=== PATIENT | male | born 1955 | race Caucasian/White ===

== ENCOUNTER 2019-12-16 10:22 | Day surgery (SDC) | payer BC ==
--- NOTE | 2019-12-12 15:23 | PCM.SN.2 ---
- Free Text/Narrative Note: Anesthesia Note: Left selective femoral nerve block at the adductor canal for post-procedure pain control under US guidance requested by Dr. Ruffin. Time Out: Start: End: Chart reviewed. Consent signed. Questions answered. Appropriate monitors applied. Time out performed. Left mid-shaft femur identified with ultrasound, scanning medially of femur, the femoral artery in the adductor canal visualized, and the femoral nerve located laterally to the artery. The skin was prepped lateral to the ultrasound probe with chlorahexadine times two. The 21ga 4 insulated block needle was inserted under direct ultrasound guidance into the adductor canal. 25mL of 0.5% ropivacaine with 1:200,000 epinephrine was injected circumferentially around the nerve with intermittent negative aspiration noted. Patient tolerated the procedure well. Sterile technique noted along with sterile gloves, mask, and sterile probe cover. See picture on progress note and vital signs on nurses notes. Block completed in PACU. Jennifer Groves CRNA
[~2019-12-16 10:22] MED LIST: Acetaminophen 325 MG Tab PO SCH; Bisacodyl 5 MG Tab PO PRN; Lactated Ringers 1,000 ML IV SCH; Lidocaine 1%/Sod Bicarbonate in NS 8.4% 1 ML Syringe IDERM PRN; Magnesium Hydroxide 400 MG/5 ML Susp 30 ML Cup PO PRN; Morphine 2 MG/ML SYRINGE IVPUSH PRN; Naloxone 0.4 MG/ML SDV IVPUSH PRN; Ondansetron 4 MG/2 ML SDV IVPUSH PRN; Pregabalin 25 MG Cap PO SCH; Sennosides 8.6 MG Tab PO PRN; Sodium Chloride 0.9% 10 ML Syringe FLUSH PRN; oxyCODONE ER 10 MG TAB.ER PO SCH
[2019-12-16] MEDS ORDERED: Midazolam 1 MG/ML 2 ML SDV ONE (10:31)
[2019-12-16] MEDS ORDERED: Ondansetron 4 MG/2 ML SDV ONE (10:31)
[2019-12-16] MEDS ORDERED: Lactated Ringers 1,000 ML ONE (10:31)
[2019-12-16] MEDS ORDERED: Propofol 200 MG/20 ML SDV ONE ×2 (10:31→13:50)
[2019-12-16] MEDS ORDERED: fentaNYL 100 MCG/2 ML SDV ONE (10:31)
--- NOTE | 2019-12-16 10:47 | PCM.PREANE ---
Preanesthetic Assessment - Anesthesia/Transfusion/Family Hx Anesthesia History: Prior Anesthesia Without Reaction Family History of Anesthesia Reaction: No Transfusion History: No Prior Transfusion(s) - Review of Systems General: Other (ETOH, 2-3 beers per day) Pulmonary: Other (previous smoker) Cardiovascular: Other (HTN) Gastrointestinal: Other (occassional heartburn, takes over the counter as needed) Neurological: No Symptoms Other: Reports: None - Physical Assessment NPO Status Date: 12/15/19 NPO Status Time: 21:30 Weight: 80 kg ASA Class: 2 Mental Status: Alert & Oriented x3 Airway Class: Mallampati = 2 Dentition: Reports: Normal Dentition Thyro-Mental Finger Breadths: 3 Mouth Opening Finger Breadths: 3 ROM/Head Extension: Full Lungs: Clear to Auscultation, Normal Respiratory Effort Cardiovascular: Regular Rate, Regular Rhythm - Lab Values: Laboratory Last Values COVID-19 PCR Not detected (NOT DETECT) 12/12/19 09:30 MRSA (PCR) Positive H 12/04/19 13:11 - Allergies Allergies/Adverse Reactions: Allergies Allergy/AdvReac Type Severity Reaction Status Date / Time pravastatin AdvReac Muscle Verified 12/13/19 14:39 Weakness - Blood Blood Available: No Product(s) Available: None - Anesthesia Plan Pre-Op Medication Ordered: None - Acknowledgements Anesthesia Type Planned: Spinal, MAC Pt an Appropriate Candidate for the Planned Anesthesia: Yes Alternatives and Risks of Anesthesia Discussed w Pt/Guardian: Yes Pt/Guardian Understands and Agrees with Anesthesia Plan: Yes PreAnesthesia Questionnaire HEENT History: Reports: None Cardiovascular History: Reports: High Cholesterol, Hypertension Respiratory History: Reports: None Gastrointestinal History: Reports: Other (See Below) Other Gastrointestinal History: anal fissure Genitourinary History: Reports: Other (See Below) Other Genitourinary History: erectile dysfunction, ureter calculus HEEL DIPPER History: Reports: None Musculoskeletal History: Reports: Osteoarthritis Neurological History: Reports: None Psychiatric History: Reports: None Endocrine/Metabolic History: Reports: None Hematologic History: Reports: None Immunologic History: Reports: None Oncologic (Cancer) History: Reports: None Dermatologic History: Reports: None - Past Surgical History Head Surgeries/Procedures: Reports: None HEENT Surgical History: Reports: Tonsillectomy Cardiovascular Surgical History: Reports: None Respiratory Surgical History: Reports: None GI Surgical History: Reports: Colonoscopy Other Female Surgeries/Procedures: cystoscopy, ureteroscopy Male Surgical History: Reports: Other (See Below) Endocrine Surgical History: Reports: None Neurological Surgical History: Reports: None Musculoskeletal Surgical History: Reports: Arthroscopic Knee Oncologic Surgical History: Reports: None Dermatological Surgical History: Reports: None - SUBSTANCE USE Smoking Status *Q: Never Smoker Days Per Week of Alcohol Use: 2 Number of Drinks Per Day: 2 Total Drinks Per Week: 4 Recreational Drug Use History: No - HOME MEDS Home Medications: Home Meds Cholecalciferol (Vitamin D3) [Vitamin D3] 5,000 unit PO DAILY 12/13/19 [History] Fish Oil/[place]-3 Fatty Acids [Fish Oil 1,000 MG] 1 gm PO DAILY 12/13/19 [History] Flaxseed Oil 1,000 mg PO DAILY 12/13/19 [History] Lisinopril/Hydrochlorothiazide [Lisinopril-Hctz 20-12.5 mg Tab] 1 tab PO DAILY 12/13/19 [History] Multivitamin [Daily Keyla] 1 tab PO DAILY 12/13/19 [History] Sildenafil [Viagra] 100 mg PO ASDIRECTED PRN 12/13/19 [History] Turmeric 400 mg PO DAILY 12/13/19 [History] Ubidecarenone [Coq-10] 100 mg PO DAILY 12/13/19 [History] - CURRENT (IN HOUSE) MEDS Current Meds: Current Medications Acetaminophen (Tylenol) 975 mg PO ONETIME [facility] Stop: 12/16/19 18:00 Last Admin: 12/16/19 10:37 Dose: 975 mg Documented by: Aspirin (Ecotrin) 325 mg PO BID [facility] Bisacodyl (Dulcolax) 5 mg PO DAILY PRN PRN Reason: Constipation Morphine Sulfate 8 mg/Epinephrine HCl 0.3 mg/Cefuroxime Sodium 750 mg/Ketorolac Tromethamine 30 mg/Sodium Chloride 7.9 ml 0 mg .XX ONETIME [facility] Stop: 12/16/19 13:00 Cyclobenzaprine HCl (Flexeril) 10 mg PO TID PRN PRN Reason: Spasms Docusate Sodium (Colace) 100 mg PO BID [facility] Famotidine (Pepcid) 20 mg PO Q12H [facility] Lactated Ringer's (Ringers, Lactated) 1,000 mls @ 125 mls/hr IV ASDIRECTED [facility] Stop: 12/16/19 23:00 Cefazolin Sodium/Dextrose 2 gm (/ Premix) 50 mls @ 100 mls/hr IV Q8H [facility] Stop: 12/16/19 22:59 Lidocaine/Sodium Bicarbonate (Buffered Lidocaine 1% In Ns 8.4%) 0.25 ml IDERM ONETIME PRN PRN Reason: Prior to IV Start Stop: 12/16/19 18:00 Magnesium Hydroxide (Milk Of Magnesia) 30 ml PO BID PRN PRN Reason: Constipation Morphine Sulfate (Morphine) 2 mg IVPUSH Q2H PRN PRN Reason: Breakthrough Pain Naloxone HCl (Narcan) 0.1 mg IVPUSH Q5M PRN PRN Reason: Oversedation Ondansetron HCl (Zofran) 4 mg IVPUSH Q6H PRN PRN Reason: Nausea/Vomiting Oxycodone HCl (Oxycontin) 10 mg PO ONETIME [facility] Stop: 12/16/19 18:00 Last Admin: 12/16/19 10:37 Dose: 10 mg Documented by: Oxycodone/Acetaminophen (Percocet 325-5 Mg) 1 - 2 tab PO Q4H PRN PRN Reason: Pain Pregabalin (Lyrica) 50 mg PO ONETIME [facility] Stop: 12/16/19 18:00 Last Admin: 12/16/19 10:37 Dose: 50 mg Documented by: Senna (Senna) 8.6 mg PO BID PRN PRN Reason: Constipation Sodium Chloride (Saline Flush) 10 ml FLUSH ASDIRECTED PRN PRN Reason: Keep Vein Open Stop: 12/16/19 18:00 Vancomycin HCl (Pharmacy To Dose - Vancomycin) 1 dose .XX ONETIME ONE Stop: 12/16/19 07:13 Discontinued Medications Cefazolin Sodium (Ancef) Confirm Administered Dose 2 gm .ROUTE .STK-MED ONE Stop: 12/16/19 10:32 Fentanyl (Sublimaze) Confirm Administered Dose 100 mcg .ROUTE .STK-MED ONE Stop: 12/16/19 10:32 Lactated Ringer's (Ringers, Lactated) Confirm Administered Dose 1,000 mls @ as directed .ROUTE .STK-MED ONE Stop: 12/16/19 10:32 Midazolam HCl (Versed 1 Mg/Ml) Confirm Administered Dose 2 mg .ROUTE .STK-MED ONE Stop: 12/16/19 10:32 Ondansetron HCl (Zofran) Confirm Administered Dose 4 mg .ROUTE .STK-MED ONE Stop: 12/16/19 10:32 Propofol (Diprivan 20 Ml) Confirm Administered Dose 600 mg .ROUTE .STK-MED ONE Stop: 12/16/19 10:32
[2019-12-16] MEDS ORDERED: Vancomycin 1 GM SDV ONE ×2 (11:37→14:00)
[2019-12-16] MEDS ORDERED: ceFAZolin 1 GM Vial ONE (11:38)
[2019-12-16] MEDS ORDERED: Bupivacaine 0.25% 10 ML SDV ONE (11:38)
[2019-12-16] MEDS ORDERED: Triamcinolone Acetonide 40 MG/ML 1 ML MDV ONE (11:51)
[2019-12-16] MEDS: ceFAZolin 1 GM Vial ONE ×3 (13:01→14:01)
[2019-12-16] MEDS ORDERED: ePHEDrine Sulfate/0.9% NaCl/Pf 25 MG/5 ML SYRINGE IV ONE (13:02)
[2019-12-16] MEDS: Morphine 8 MG, EPINEPHrine 0.3 MG, Cefuroxime 750 MG, Ketorolac 30 MG, Sodium Chloride ... SCH ×10 (13:34→13:56)
[2019-12-16] MEDS: Bupivacaine 0.25% 10 ML SDV ONE ×3 (13:34→14:38)
[2019-12-16] MEDS: Iodine/Sodium Iodide 2% Tincture 30 ML Bottle ONE ×2 (13:34→13:52)
[2019-12-16] MEDS: Vancomycin 1 GM SDV ONE ×2 (13:35→13:59)
[2019-12-16] MEDS ORDERED: Ondansetron 4 MG/2 ML SDV IVPUSH PRN (13:41)
[2019-12-16] MEDS ORDERED: fentaNYL 100 MCG/2 ML SDV IVPUSH PRN (13:41)
--- NOTE | 2019-12-16 14:41 | PCM.POSTAN ---
POST ANESTHESIA ASSESSMENT - MENTAL STATUS Mental Status: Alert, Oriented - VITAL SIGNS Vital Signs: Last Vital Signs Temp 36.6 C 12/16/19 10:20 Pulse 67 12/16/19 10:20 Resp 16 12/16/19 10:20 BP 145/92 H 12/16/19 10:20 Pulse Ox 97 12/16/19 10:20 - RESPIRATORY Respiratory Status: Respiratory Rate WNL, Airway Patent, O2 Saturation Stable, Supplemental Oxygen - CARDIOVASCULAR CV Status: Pulse Rate WNL, Blood Pressure Stable - GASTROINTESTINAL GI Status: No Symptoms - PAIN Pain Score: 0 - POST OP HYDRATION Hydration Status: Adequate & Stable
[2019-12-16] MEDS ORDERED: Ropivacaine 0.5% 5 MG/ML 30 ML SDV ONE (14:46)
[2019-12-16] MEDS ORDERED: EPINEPHrine 1 MG/ML SDV ONE (14:46)
[2019-12-16] MEDS ORDERED: Cyclobenzaprine 10 MG Tab PO PRN (15:00)
--- NOTE | 2019-12-16 15:08 | PCM.SN.2 ---
- Free Text/Narrative Note: Left selective femoral nerve block at the adductor canal for post-procedure pain control under US guidance requested by Dr. Ruffin. Date: 12/16/2019 Time Out: 1454 Start: 1454 End: 1501 Chart reviewed. Consent signed. Questions answered. Appropriate monitors applied. Time out performed. Left mid-shaft femur identified with ultrasound, scanning medially of femur, the femoral artery in the adductor canal visualized, and the femoral nerve located laterally to the artery. The skin was prepped lateral to the ultrasound probe with chlorahexadine times two. The 21ga 4 insulated block needle was inserted under direct ultrasound guidance into the adductor canal. 25mL of 0.5% ropivacaine with 1:200,000 epinephrine was injected circumferentially around the nerve with intermittent negative aspiration noted. Patient tolerated the procedure well. Sterile technique noted along with sterile gloves, mask, and sterile probe cover. See picture on progress note and vital signs on nurses notes. Block completed in PACU. Ghulam Laws CRNA
--- NOTE | 2019-12-16 15:21 | CR ---
Left knee: AP and crosstable lateral views of the left knee were obtained. Comparison: No prior left knee study. Knee prosthesis is seen. Components are aligned. Soft tissue air is noted from the surgical procedure. No fracture or other abnormality is appreciated. Impression: 1. Satisfactory postop radiographic appearance of recently placed left knee prosthesis. Diagnostic code #2 This report was dictated in MDT
[2019-12-16] MEDS: ceFAZolin 2 GM in Premix Bag 1 BAG IV SCH (18:52)
[2019-12-16] MEDS: Famotidine 20 MG Tab PO SCH (20:40)
[2019-12-16] MEDS: Acetaminophen/oxyCODONE 325-5 MG Tab PO PRN (20:41)
[2019-12-16] MEDS: Docusate Sodium 100 MG Cap PO SCH (20:41)
[2019-12-17] MEDS: Acetaminophen/oxyCODONE 325-5 MG Tab PO PRN ×3 (00:29→08:35)
[2019-12-17] MEDS: ceFAZolin 2 GM in Premix Bag 1 BAG IV SCH ×2 (04:05→10:22)
--- NOTE | 2019-12-17 08:26 | PCM.SURGPN ---
- General Info Date of Service: 12/17/19 POD#: 1 Functional Status: Reports: Pain Controlled, Tolerating Diet, Ambulating, Urinating, Incentive Spirometry, Other (The pt states he is doing very well. ) - Patient Data Vitals - Most Recent: Last Vital Signs Temp 98.4 F 12/17/19 07:45 Pulse 79 12/17/19 07:45 Resp 18 12/17/19 07:45 BP 141/89 H 12/17/19 07:45 Pulse Ox 95 12/17/19 07:45 Weight - Most Recent: 176 lb 5.917 oz I&O - Last 24 Hours: Intake & Output 12/16/19 12/17/19 12/17/19 22:59 06:59 14:59 Intake Total 700 1000 Balance 700 1000 Lab Results Last 24 Hrs: Laboratory Results - last 24 hr 12/17/19 12/17/19 Range/Units 06:00 06:00 WBC 10.47 H (4.23-9.07) K/mm3 RBC 4.48 L (4.63-6.08) M/mm3 Hgb 13.1 L (13.7-17.5) gm/dl Hct 40.7 (40.1-51.0) % MCV 90.8 (79.0-92.2) fl MCH 29.2 (25.7-32.2) pg MCHC 32.2 (32.2-35.5) g/dl RDW Std Deviation 41.7 (35.1-43.9) fL Plt Count 243 (163-337) K/mm3 MPV 8.9 L (9.4-12.3) fl Carbon Dioxide 28 (21-32) mEq/L BUN 22 H (7-18) mg/dL Creatinine 1.2 (0.7-1.3) mg/dL Est Cr Clr Drug Dosing 63.83 mL/min Estimated GFR (MDRD) > 60 (>60) mL/min BUN/Creatinine Ratio 18.3 H (14-18) Glucose 166 H (80-115) mg/dL Total Bilirubin 0.9 (0.2-1.0) mg/dL AST 12 L (15-37) U/L ALT 25 (16-63) U/L Alkaline Phosphatase 35 L (46-116) U/L Total Protein 6.8 (6.4-8.2) g/dl Albumin 3.5 (3.4-5.0) g/dl Globulin 3.3 gm/dL Albumin/Globulin Ratio 1.1 (1-2) Med Orders - Current: Current Medications Aspirin (Ecotrin) 325 mg PO BID [facility] Bisacodyl (Dulcolax) 5 mg PO DAILY PRN PRN Reason: Constipation Cholecalciferol (Vitamin D3) 5,000 unit PO DAILY [facility] Cyclobenzaprine HCl (Flexeril) 10 mg PO TID PRN PRN Reason: Spasms Docusate Sodium (Colace) 100 mg PO BID [facility] Last Admin: 12/16/19 20:41 Dose: 100 mg Documented by: Famotidine (Pepcid) 20 mg PO Q12H [facility] Last Admin: 12/16/19 20:40 Dose: 20 mg Documented by: Hydrochlorothiazide (Hydrochlorothiazide) 25 mg PO DAILY [facility] Cefazolin Sodium/Dextrose 2 gm (/ Premix) 50 mls @ 100 mls/hr IV Q8H [facility] Stop: 12/17/19 11:29 Last Admin: 12/17/19 04:05 Dose: 100 mls/hr Documented by: Lisinopril (Prinivil) 20 mg PO DAILY [facility] Magnesium Hydroxide (Milk Of Magnesia) 30 ml PO BID PRN PRN Reason: Constipation Morphine Sulfate (Morphine) 2 mg IVPUSH Q2H PRN PRN Reason: Breakthrough Pain Multivitamins (Thera) 1 each PO DAILY [facility] Naloxone HCl (Narcan) 0.1 mg IVPUSH Q5M PRN PRN Reason: Oversedation Ondansetron HCl (Zofran) 4 mg IVPUSH Q6H PRN PRN Reason: Nausea/Vomiting Oxycodone/Acetaminophen (Percocet 325-5 Mg) 1 - 2 tab PO Q4H PRN PRN Reason: Pain Last Admin: 12/17/19 04:08 Dose: 2 tab Documented by: Senna (Senna) 8.6 mg PO BID PRN PRN Reason: Constipation Discontinued Medications Acetaminophen (Tylenol) 975 mg PO ONETIME [facility] Stop: 12/16/19 18:00 Last Admin: 12/16/19 10:37 Dose: 975 mg Documented by: Bupivacaine HCl (Sensorcaine-Mpf 0.25%) Confirm Administered Dose 30 ml .ROUTE .STK-MED ONE Stop: 12/16/19 11:39 Bupivacaine HCl (Sensorcaine-Mpf 0.25%) Confirm Administered Dose 10 ml .ROUTE .STK-MED ONE Stop: 12/16/19 11:52 Last Admin: 12/16/19 14:38 Dose: 4 ml Documented by: Cefazolin Sodium (Ancef) Confirm Administered Dose 2 gm .ROUTE .STK-[facility] ONE Stop: 12/16/19 10:32 Last Admin: 12/16/19 13:01 Dose: 2 gm Documented by: Cefazolin Sodium (Ancef) Confirm Administered Dose 2 gm .ROUTE .STK-MED ONE Stop: 12/16/19 11:39 Morphine Sulfate 8 mg/Epinephrine HCl 0.3 mg/Cefuroxime Sodium 750 mg/Ketorolac Tromethamine 30 mg/Sodium Chloride 7.9 ml 0 mg .XX ONETIME [facility] Stop: 12/16/19 13:00 Last Admin: 12/16/19 13:56 Dose: 788.3 mg Documented by: Ephedrine Sulfate (Ephedrine 25 Mg/5 Ml Syringe) Confirm Administered Dose 25 mg IV .STK-MED ONE Stop: 12/16/19 13:03 Epinephrine HCl (Adrenalin) Confirm Administered Dose 1 mg .ROUTE .[facility]-MED ONE Stop: 12/16/19 14:47 Fentanyl (Sublimaze) Confirm Administered Dose 100 mcg .ROUTE .STK-MED ONE Stop: 12/16/19 10:32 Fentanyl (Sublimaze) 50 mcg IVPUSH Q5M PRN PRN Reason: pain Stop: 12/16/19 16:00 Lactated Ringer's (Ringers, Lactated) 1,000 mls @ 125 mls/hr IV ASDIRECTED [facility] Stop: 12/16/19 23:00 Last Admin: 12/16/19 10:50 Dose: 125 mls/hr Documented by: Lactated Ringer's (Ringers, Lactated) Confirm Administered Dose 1,000 mls @ as directed .ROUTE .STK-MED ONE Stop: 12/16/19 10:32 Vancomycin HCl 1 gm/ Sodium (Chloride) 250 mls @ 250 mls/hr IV ONETIME ONE Stop: 12/16/19 12:29 Last Admin: 12/16/19 11:19 Dose: 250 mls/hr Documented by: Iodine (Iodine 2% Mild Tincture) Confirm Administered Dose 30 ml .ROUTE .STK-MED ONE Stop: 12/16/19 11:39 Last Admin: 12/16/19 13:52 Dose: 30 ml Documented by: Lidocaine/Sodium Bicarbonate (Buffered Lidocaine 1% In Ns 8.4%) 0.25 ml IDERM ONETIME PRN PRN Reason: Prior to IV Start Stop: 12/16/19 18:00 Last Admin: 12/16/19 10:49 Dose: 0.25 ml Documented by: Midazolam HCl (Versed 1 Mg/Ml) Confirm Administered Dose 2 mg .ROUTE .STK-MED ONE Stop: 12/16/19 10:32 Non-Formulary Medication (Ubidecarenone) 100 mg PO DAILY [facility] Ondansetron HCl (Zofran) Confirm Administered Dose 4 mg .ROUTE .STK-MED ONE Stop: 12/16/19 10:32 Ondansetron HCl (Zofran) 4 mg IVPUSH ONETIME PRN PRN Reason: Nausea/Vomiting Stop: 12/16/19 16:00 Oxycodone HCl (Oxycontin) 10 mg PO ONETIME [facility] Stop: 12/16/19 18:00 Last Admin: 12/16/19 10:37 Dose: 10 mg Documented by: Pregabalin (Lyrica) 50 mg PO ONETIME [facility] Stop: 12/16/19 18:00 Last Admin: 12/16/19 10:37 Dose: 50 mg Documented by: Propofol (Diprivan 20 Ml) Confirm Administered Dose 600 mg .ROUTE .STK-MED ONE Stop: 12/16/19 10:32 Propofol (Diprivan 20 Ml) Confirm Administered Dose 200 mg .ROUTE .STK-MED ONE Stop: 12/16/19 13:51 Ropivacaine (Naropin 0.5%) Confirm Administered Dose 30 ml .ROUTE .STK-MED ONE Stop: 12/16/19 14:47 Sodium Chloride (Saline Flush) 10 ml FLUSH ASDIRECTED PRN PRN Reason: Keep Vein Open Stop: 12/16/19 18:00 Tranexamic Acid (Cyklokapron) Confirm Administered Dose 1,000 mg .ROUTE .STK-MED ONE Stop: 12/16/19 11:57 Last Admin: 12/16/19 13:04 Dose: 1,000 mg Documented by: Triamcinolone Acetonide (Kenalog-40) Confirm Administered Dose 80 mg .ROUTE .STK-MED ONE Stop: 12/16/19 11:52 Last Admin: 12/16/19 14:38 Dose: 40 mg Documented by: Vancomycin HCl (Pharmacy To Dose - Vancomycin) 1 dose .XX ONETIME ONE Stop: 12/16/19 07:13 Last Admin: 12/16/19 16:41 Dose: Not Given Documented by: Vancomycin HCl (Vancomycin) Confirm Administered Dose 0 gm .ROUTE .STK-MED ONE Stop: 12/16/19 11:38 Vancomycin HCl (Vancomycin) Confirm Administered Dose 1 gm .ROUTE .STK-MED ONE Stop: 12/16/19 11:57 Last Admin: 12/16/19 13:59 Dose: 1 gm Documented by: Vancomycin HCl (Vancomycin) Confirm Administered Dose 1 gm .ROUTE .STK-MED ONE Stop: 12/16/19 14:01 - Exam Wound/Incisions: Dressing Dry and Intact General: Alert, Cooperative, No Acute Distress Lungs: Normal Respiratory Effort Extremities: Other (NVS intact for BLE. Sohail's negative.) Sepsis Event Note - Evaluation Sepsis Screening Result: No Definite Risk - Focused Exam Vital Signs: Vital Signs Temp Pulse Resp BP Pulse Ox 12/17/19 07:45 98.4 F 79 18 141/89 H 95 12/17/19 04:05 97.9 F 58 L 16 154/93 H 94 L 12/17/19 00:28 97.5 F 64 16 139/80 98 - Problem List Review Problem List Initiated/Reviewed/Updated: Yes - My Orders Last 24 Hours: Active Orders 24 hr Category Date Time Status Communication Order [RC] ROUTINE Care 12/16/19 13:41 Active Notify Provider [RC] ASDIRECTED Care 12/16/19 13:41 Active Oxygen Therapy [RC] ASDIRECTED Care 12/16/19 13:41 Active Ready for Discharge [RC] PER UNIT ROUTINE Care 12/17/19 08:20 Ordered Regular Diet [DIET] Diet 12/16/19 Lunch Active COMPREHENSIVE METABOLIC PN,CMP [CHEM] AM Lab 12/17/19 06:00 Results Aspirin [Ecotrin] Med 12/17/19 09:00 Active 325 mg PO BID Cholecalciferol (Vitamin D3) [Vitamin D3] Med 12/17/19 09:00 Active 5,000 unit PO DAILY Cyclobenzaprine [Flexeril] Med 12/16/19 15:00 Active 10 mg PO TID PRN Docusate Sodium [Colace] Med 12/16/19 21:00 Active 100 mg PO BID Famotidine [Pepcid] Med 12/16/19 21:00 Active 20 mg PO Q12H Multivitamins,Therapeutic [Thera] Med 12/17/19 09:00 Active 1 each PO DAILY ceFAZolin [Ancef] 2 gm Med 12/16/19 19:00 Active Premix Bag 1 bag IV Q8H hydroCHLOROthiazide Med 12/17/19 09:00 Active 25 mg PO DAILY lisinopriL [Prinivil] Med 12/17/19 09:00 Active 20 mg PO DAILY Medication Orders Aspirin (Ecotrin) 325 mg PO BID [facility] Bisacodyl (Dulcolax) 5 mg PO DAILY PRN PRN Reason: Constipation Cholecalciferol (Vitamin D3) 5,000 unit PO DAILY [facility] Cyclobenzaprine HCl (Flexeril) 10 mg PO TID PRN PRN Reason: Spasms Docusate Sodium (Colace) 100 mg PO BID [facility] Last Admin: 12/16/19 20:41 Dose: 100 mg Documented by: MEGAN Famotidine (Pepcid) 20 mg PO Q12H [facility] Last Admin: 12/16/19 20:40 Dose: 20 mg Documented by: MEGAN Hydrochlorothiazide (Hydrochlorothiazide) 25 mg PO DAILY [facility] Cefazolin Sodium/Dextrose 2 gm (/ Premix) 50 mls @ 100 mls/hr IV Q8H [facility] Stop: 12/17/19 11:29 Last Admin: 12/17/19 04:05 Dose: 100 mls/hr Documented by: Infusion: 12/16/19 19:22 Dose: 100 mls/hr Documented by: Admin: 12/16/19 18:52 Dose: 100 mls/hr Documented by: MICAH Lisinopril (Prinivil) 20 mg PO DAILY [facility] Magnesium Hydroxide (Milk Of Magnesia) 30 ml PO BID PRN PRN Reason: Constipation Morphine Sulfate (Morphine) 2 mg IVPUSH Q2H PRN PRN Reason: Breakthrough Pain Multivitamins (Thera) 1 each PO DAILY [facility] Naloxone HCl (Narcan) 0.1 mg IVPUSH Q5M PRN PRN Reason: Oversedation Ondansetron HCl (Zofran) 4 mg IVPUSH Q6H PRN PRN Reason: Nausea/Vomiting Oxycodone/Acetaminophen (Percocet 325-5 Mg) 1 - 2 tab PO Q4H PRN PRN Reason: Pain Last Admin: 12/17/19 04:08 Dose: 2 tab Documented by: Admin: 12/17/19 00:29 Dose: 2 tab Documented by: Admin: 12/16/19 20:41 Dose: 2 tab Documented by: MEGAN Senna (Senna) 8.6 mg PO BID PRN PRN Reason: Constipation - Assessment Assessment (Free Text/Narrative):: POD#1 - left TKA - Plan Plan (Free Text/Narrative):: 1. Hgb 13.1. 2. 325mg ASA PO BID, frequent mobility, TEDs for VTE prophylaxis. 3. Discharge to home today. 4. Outpatient therapy. The pt's case was discussed with Dr. Ruffin.
[2019-12-17] MEDS: Famotidine 20 MG Tab PO SCH (08:34)
[2019-12-17] MEDS: Docusate Sodium 100 MG Cap PO SCH (08:35)
--- NOTE | 2019-12-17 08:42 | PCM48HPAN ---
Post Anesthesia Note - EVALUATION WITHIN 48HRS OF ANESTHETIC Vital Signs in Normal Range: Yes Patient Participated in Evaluation: Yes Respiratory Function Stable: Yes Airway Patent: Yes Cardiovascular Function Stable: Yes Hydration Status Stable: Yes Pain Control Satisfactory: Yes Nausea and Vomiting Control Satisfactory: Yes Mental Status Recovered: Yes Vital Signs: Last Vital Signs Temp 36.9 C 12/17/19 07:45 Pulse 79 12/17/19 07:45 Resp 18 12/17/19 07:45 BP 141/89 H 12/17/19 08:35 Pulse Ox 95 12/17/19 07:45
[2019-12-17] MEDS ORDERED: Aspirin 325 MG Tab.EC PO SCH (09:00)
[2019-12-17] MEDS ORDERED: Non-Formulary Medication 1 Each (Ubidecarenone 100 MG) PO SCH (09:00)
[2019-12-17] MEDS ORDERED: Cholecalciferol (Vitamin D3) 5,000 UNIT Tab PO SCH (09:00)
[2019-12-17] MEDS ORDERED: Lisinopril 20 MG Tab PO SCH (09:00)
[2019-12-17] MEDS ORDERED: Hydrochlorothiazide 25 MG Tab PO SCH (09:00)
[2019-12-17] MEDS ORDERED: Multivitamins,Therapeutic Tab PO SCH (09:00)
--- NOTE | 2019-12-17 14:14 | PCM.OPNOTE ---
- General Post-Op/Procedure Note Date of Surgery/Procedure: 12/16/19 Operative Procedure(s): left total knee arthroplasty with right knee corticosteroid injection Pre Op Diagnosis: bilateral knee osteoarthrosis Post-Op Diagnosis: Same Anesthesia Technique: Local, MAC, Spinal Primary Surgeon: Jamison Ruffin Anesthesia Provider: Christine Miranda Workforce Staffing Advisor: Yvonne Munoz Workforce Staffing Advisor: Martine López EBL in mLs: 250 Complications: None Condition: Good Free Text/Narrative:: Intake & Output 12/16/19 12/17/19 12/17/19 22:59 06:59 14:59 Intake Total 700 1000 240 Balance 700 1000 240 5/5 9mm 35x10
--- NOTE | 2019-12-17 14:40 | OR ---
DATE OF OPERATION: 12/16/2019 SURGEON: Jamison Ruffin MD OPERATION PERFORMED: Left total knee arthroplasty with right knee corticosteroid injection. PREOPERATIVE DIAGNOSIS: Bilateral knee osteoarthrosis. POSTOPERATIVE DIAGNOSIS: Bilateral knee osteoarthrosis. ANESTHESIA: Local MAC with spinal. ANESTHESIA PROVIDER: Christine Miranda. ASSISTANTS: Yvonne Munoz PA-C, and Martine López LPN. ESTIMATED BLOOD LOSS: 250 mL. COMPLICATIONS: None. CONDITION: Stable. IMPLANTS: 1. Carolyn size 5 press-fit CR femur. 2. [place] size 5 press-fit tibial base plate. 3. [place] size 5, 9 mm CS polyethylene insert. 4. [place] size 35 x 10 mm press-fit asymmetric patella. DESCRIPTION OF PROCEDURE: The patient was identified in the preop holding area. Proper site was marked and identified by the surgeon. The patient was taken back to the operating theater. After adequate anesthesia, the patient's left lower extremity had a nonsterile tourniquet applied and it was sterilely prepped and draped in the usual sterile fashion. OR time-out was performed. The patient received 2 g IV Ancef. At this time, the left lower extremity was exsanguinated. Tourniquet was insufflated to 300 mmHg. Standard medial parapatellar incision was made. Medial parapatellar arthrotomy was created. Deep fibers of the MCL were raised and anterior fat pad was resected. At this time, attention was turned to the patella. Patella measured 26, it was resected to a 15 for 35 x 10 mm patella. Drill holes were then drilled and found to be in adequate position. The drill was then drilled in the distal femur and the intramedullary distal femoral cutting guide was then placed. 8 mm was resected off the distal femur and was found to be an adequate resection. Sizing guide was placed. It was found to be a size 5 press-fit CR femur that was shown on the implant record at the beginning of this dictation. The drill holes were drilled for the epicondylar axis using [place] line and epicondyles as reference. At this time, the 4-in- 1 cutting block was placed. An anterior posterior and anterior and posterior chamfer cuts were then completed. Attention was turned to the tibia. The posterior medial lateral retractors were placed. The extramedullary tibial guide was placed. It was placed in the old footprint of the ACL. It was aligned with the center of the ankle and 0 degrees of slope, 9 mm was then resected off the unaffected side. There was found to be an acceptable reduction. At this time, posterior osteophytes were removed along with medial and lateral meniscus. A trial implant was placed with a correct sized tibia that was mentioned at the beginning of the dictation. A Carolyn size 5, 9 mm CS polyethylene insert was then placed. The patient's knee was brought through range of motion. The patella was tracking centrally and was stable to varus and valgus stress. Alignment was found to be roughly at 0 degrees. The tibia was stamped and drilled in proper rotation. The universal tibial base plate was impacted in place. Next, the [place] size 5 press-fit CR femur impacted into place and the Carolyn size 5, 9 mm CS polyethylene insert was placed. The patient's knee was brought into full extension. The patella was then press-fit in place at this time. Tourniquet was deflated. One liter dilute Betadine solution was irrigated through the knee along with 3 L of pulse lavage irrigation with Ancef. Periarticular injection was then completed. The patient's knee was brought through a range of motion. Knee was found to be stable to varus valgus stress, the patella was tracking centrally with full range of motion. At this time, a #2 barbed suture was used for closure of the medial parapatellar arthrotomy. Topical tranexamic acid was placed. 2-0 Vicryl was used subcutaneously, Prineo was used for the skin. The patient tolerated the procedure well and was sent to the PACU in stable condition. After this was completed, under sterile technique 2 mL of 40 mg Kenalog and 4 mL of 0.25% Marcaine were injected. The patient tolerated both procedures well. MELISSA /[id number]
== END 2019-12-17 11:40 | disposition home or self-care (01) ==
LOC: JD.SDS 10:22 → JD.MS 10:23 → JD.SDS 12-17 11:40
PROVIDERS: ATTEND Orthopaedic Surgery
DX: M17.0 Bilateral primary osteoarthritis of knee (principal); E78.00 Pure hypercholesterolemia, unspecified; I10 Essential (primary) hypertension; E78.2 Mixed hyperlipidemia; N52.9 Male erectile dysfunction, unspecified; Z87.891 Personal history of nicotine dependence; Z01.812 Encounter for preprocedural laboratory examination; Z20.828 Contact with and (suspected) exposure to other viral communicable diseases; Z79.899 Other long term (current) drug therapy
CPT/HCPCS: 20610; 27447; 36415; 73560; 80053; 85027; 87635; 87641; 97110; 97116; 97161; 97165; A9270; C1776; J0171; J0690; J0697; J1885; J2250; J2270; J2405; J2704; J2795; J3010; J3301; J3370; J3490; J7050; J7120; 01402; 64450; U0002